=== PATIENT | male | born 1995 | race African-American/Black ===

== ENCOUNTER 2019-03-20 03:11 | Emergency (ER) | payer SELFPAY ==
[~2019-03-20] VITALS: Ht 172.7 cm; Wt 90.7 kg
[2019-03-20 03:13] VITALS: BP 148/88
--- NOTE | 2019-03-20 03:15 | NUR ---
Mita porter in [facility] - 03/20/19 at 0327 by ИРИНА WOUND CLEANED WITH NS.
--- NOTE | 2019-03-20 03:15 | NUR ---
WOUND CLEANED WITH NS.
--- NOTE | 2019-03-20 03:16 | NUR ---
PT TO ED WITH [place] [facility] FOR PREBOOK. LACERATION NOTED TO RT SIDE OF HEAD. NO ACTIVE BLEEDING. PT PLACED INTO BED, PENDING MD HEDRICK.
--- NOTE | 2019-03-20 03:20 | NUR ---
HEAD WOUND CLEANED WITH NS, BLEEDING CONTROLLED AT THIS TIME.
--- NOTE | 2019-03-20 03:22 | NUR ---
DR LIEBERMAN WITH PATIENT.
[2019-03-20 03:32] VITALS: BP 148/88
--- NOTE | 2019-03-20 03:32 | NUR ---
Patient discharged with v/s stable. Written and verbal after care instructions given and explained. Patient verbalized understanding. Ambulatory with steady gait IN CUSTODY ESCORTED BY FABIAN PHAM. All questions addressed prior to discharge. Advised to follow up with PMD.
== END 2019-03-20 03:32 ==
LOC: MED 03:11
DX: S01.91XA Laceration without foreign body of unspecified part of head, initial encounter (principal); J45.909 Unspecified asthma, uncomplicated; Z02.89 Encounter for other administrative examinations; V89.2XXA Person injured in unspecified motor-vehicle accident, traffic, initial encounter; Y93.89 Activity, other specified; Y92.89 Other specified places as the place of occurrence of the external cause; Y99.8 Other external cause status
CPT/HCPCS: 99283